=== PATIENT | male | born 1935 | race Caucasian/White ===

== ENCOUNTER 2017-02-16 09:29 | Inpatient (IN) | payer MEDICARE, OTHER ==
--- NOTE | 2017-02-16 10:11 | EDM.PDOC ---
ED HPI GENERAL MEDICAL PROBLEM - General Chief Complaint: Neuro Symptoms/Deficits Stated Complaint: RIGHT SIDED WEAKNESS Time Seen by Provider: 02/16/17 10:06 Source of Information: Reports: Patient, Family, Other ( records from er visit from yesterday. ) - History of Present Illness Onset: Other ( started last nite and was definitely worse today. ) Duration: Hour(s):, Getting Worse, Recurring Location: Reports: Head Associated Symptoms: Reports: Other (pt was having difficulty coordinating his rt arm. He had some problem walking. He was not able to feed himself this am. ) - Related Data Allergies Allergy/AdvReac Type Severity Reaction Status Date / Time No Known Allergies Allergy Verified 02/16/17 09:44 Home Meds: Home Meds Aspirin [Adult Low Dose Aspirin EC] 81 mg PO DAILY 07/23/13 [History] Gluc/Preston-Msm#1/C/Cory/[place]/Bor [Eq Xodurqrsrkw-Prgbjak-BRU Tab] 1 each PO ASDIRECTED 07/23/13 [History] Verapamil HCl [Verapamil ER] 1 tab PO Q12HR 07/23/13 [History] Calcium Carbonate [Calcium] 1 tab PO DAILY 02/16/17 [History] Past Medical History HEENT History: Reports: Hard of Hearing, Impaired Vision Cardiovascular History: Reports: Hypertension Musculoskeletal History: Reports: Back Pain, Chronic Neurological History: Reports: CVA Oncologic (Cancer) History: Reports: Prostate, Other (See Below) Other Oncologic History: skin cancer Dermatologic History: Reports: Other (See Below) Other Dermatologic History: skin cancer - Past Surgical History Male Surgical History: Reports: Prostatectomy Social & Family History - Tobacco Use Smoking Status *Q: Never Smoker Second Hand Smoke Exposure: No - Alcohol Use Days Per Week of Alcohol Use: 1 Number of Drinks Per Day: 1 Total Drinks Per Week: 1 - Recreational Drug Use Recreational Drug Use: No ED ROS GENERAL - Review of Systems Review Of Systems: See Below Constitutional: Reports: No Symptoms HEENT: Reports: No Symptoms Respiratory: Reports: No Symptoms Cardiovascular: Reports: No Symptoms, Other (pt did have bradicardia yesterday. ) GI/Abdominal: Reports: No Symptoms : Reports: No Symptoms Musculoskeletal: Reports: No Symptoms Skin: Reports: No Symptoms ED EXAM, NEURO - Physical Exam Exam: See Below Text/Narrative:: pt arrived because he was having difficulty coordinating his rt arm and he was not able to feed himself this am. He was having difficulty with ambulation because of weakness in the rt leg. he had no speech difficulty or facial deviation. Exam Limited By: No Limitations General Appearance: Alert, No Apparent Distress, Other (pupils are equal and reactive. ) Ears: Normal TMs Nose: Normal Inspection Throat/Mouth: Normal Inspection Head Exam: Atraumatic Neck: Other (no bruits noted. ) Respiratory/Chest: No Respiratory Distress Cardiovascular: Regular Rate, Rhythm, Other ( rate is 55. ) GI/Abdominal: Soft, Non-Tender (Male) Exam: Deferred Rectal (Males) Exam: Deferred Neurological: Alert, Oriented x 3 Back Exam: Normal Inspection Extremities: Normal Inspection Psychiatric: Normal Affect Course - Vital Signs Last Recorded V/S: Last Vital Signs Temp 36.8 C 02/19/17 02:55 Pulse 77 02/19/17 02:55 Resp 14 02/19/17 02:55 BP 145/89 H 02/19/17 02:55 Pulse Ox 98 02/19/17 02:55 - Orders/Labs/Meds Orders: Medication Orders Apixaban (Eliquis) 5 mg PO BID [facility] Last Admin: 02/18/17 20:42 Dose: 5 mg Admin: 02/18/17 09:56 Dose: 5 mg Admin: 02/17/17 21:22 Dose: 5 mg Admin: 02/17/17 08:13 Dose: 5 mg Admin: 02/16/17 20:36 Dose: 5 mg Admin: 02/16/17 13:45 Dose: 5 mg Aspirin (Halfprin) 81 mg PO DAILY [facility] Last Admin: 02/18/17 09:56 Dose: 81 mg Admin: 02/17/17 08:13 Dose: 81 mg Calcium Carbonate (Caltrate 600+D 1500 Mg-400 Units) 1 tab PO DAILY [facility] Last Admin: 02/18/17 09:56 Dose: 1 tab Admin: 02/17/17 08:13 Dose: 1 tab Lisinopril (Prinivil) 10 mg PO DAILY [facility] Last Admin: 02/18/17 09:56 Dose: 10 mg Admin: 02/17/17 08:13 Dose: 10 mg Sodium Chloride (Saline Flush) 10 ml FLUSH ASDIRECTED PRN PRN Reason: Keep Vein Open Labs: Laboratory Tests 02/16/17 02/16/17 02/16/17 Range/Units 09:35 09:35 09:35 WBC 6.3 (4.5-11.0) K/uL RBC 4.27 L (4.30-5.90) M/uL Hgb 13.3 (12.0-15.0) g/dL Hct 40.3 (40.0-54.0) % MCV 94 (80-98) fL MCH 31 (27-31) pg MCHC 33 (32-36) % Plt Count 196 (150-400) K/uL Neut % (Auto) 54 (36-66) % Lymph % (Auto) 33 (24-44) % [place] % (Auto) 10 H (2-6) % Eos % (Auto) 2 (2-4) % Baso % (Auto) 1 (0-1) % Sodium 143 (140-148) mmol/L Potassium 4.1 (3.6-5.2) mmol/L Chloride 107 (100-108) mmol/L Carbon Dioxide 30 (21-32) mmol/L Anion Gap 5.6 (5.0-14.0) mmol/L BUN 12 (7-18) mg/dL Creatinine 1.2 (0.8-1.3) mg/dL Est Cr Clr Drug Dosing 45.90 mL/min Estimated GFR (MDRD) 58 L (>60) Glucose 93 (74-106) mg/dL Calcium 9.2 (8.5-10.1) mg/dL Total Bilirubin 0.7 (0.2-1.0) mg/dL AST 22 (15-37) U/L ALT 24 (12-78) U/L Alkaline Phosphatase 68 (46-116) U/L Troponin I 0.026 (0.000-0.056) ng/mL Total Protein 5.7 L (6.4-8.2) g/dL Albumin 2.3 L (3.4-5.0) g/dL Globulin 3.4 (2.3-3.5) g/dL Albumin/Globulin Ratio 0.7 L (1.2-2.2) Urine Color Urine Appearance Urine pH (4.5-8.0) Ur Specific [place] (1.008-1.030) Urine Protein (NEGATIVE) mg/dL Urine Glucose (UA) (NEGATIVE) mg/dL Urine Ketones (NEGATIVE) mg/dL Urine Occult Blood (NEGATIVE) Urine Nitrite (NEGAITVE) Urine Bilirubin (NEGATIVE) Urine Urobilinogen (NORMAL) mg/dL Ur Leukocyte Esterase (NEGATIVE) Urine RBC (0-5) Urine WBC (0-5) Ur Epithelial Cells Amorphous Sediment Urine Bacteria Urine Mucus 02/16/17 Range/Units 11:05 WBC (4.5-11.0) K/uL RBC (4.30-5.90) M/uL Hgb (12.0-15.0) g/dL Hct (40.0-54.0) % MCV (80-98) fL MCH (27-31) pg MCHC (32-36) % Plt Count (150-400) K/uL Neut % (Auto) (36-66) % Lymph % (Auto) (24-44) % [place] % (Auto) (2-6) % Eos % (Auto) (2-4) % Baso % (Auto) (0-1) % Sodium (140-148) mmol/L Potassium (3.6-5.2) mmol/L Chloride (100-108) mmol/L Carbon Dioxide (21-32) mmol/L Anion Gap (5.0-14.0) mmol/L BUN (7-18) mg/dL Creatinine (0.8-1.3) mg/dL Est Cr Clr Drug Dosing mL/min Estimated GFR (MDRD) (>60) Glucose (74-106) mg/dL Calcium (8.5-10.1) mg/dL Total Bilirubin (0.2-1.0) mg/dL AST (15-37) U/L ALT (12-78) U/L Alkaline Phosphatase (46-116) U/L Troponin I (0.000-0.056) ng/mL Total Protein (6.4-8.2) g/dL Albumin (3.4-5.0) g/dL Globulin (2.3-3.5) g/dL Albumin/Globulin Ratio (1.2-2.2) Urine Color Yellow Urine Appearance Clear Urine pH 8.0 (4.5-8.0) Ur Specific [place] 1.015 (1.008-1.030) Urine Protein Negative (NEGATIVE) mg/dL Urine Glucose (UA) Normal (NEGATIVE) mg/dL Urine Ketones Negative (NEGATIVE) mg/dL Urine Occult Blood Negative (NEGATIVE) Urine Nitrite Negative (NEGAITVE) Urine Bilirubin Negative (NEGATIVE) Urine Urobilinogen Normal (NORMAL) mg/dL Ur Leukocyte Esterase Negative (NEGATIVE) Urine RBC Not seen (0-5) Urine WBC Not seen (0-5) Ur Epithelial Cells Not seen Amorphous Sediment Few Urine Bacteria Not seen Urine Mucus Not seen Meds: Medications Generic Name Dose Route Start Last Admin Trade Name Ayla PRN Reason Stop Dose Admin Apixaban 5 mg 02/16/17 13:00 02/18/17 20:42 Eliquis PO 5 mg BID KATHRYN Administration Aspirin 81 mg 02/17/17 09:00 02/18/17 09:56 Halfprin PO 81 mg DAILY KATHRYN Administration Calcium Carbonate 1 tab 02/17/17 09:00 02/18/17 09:56 Caltrate 600+D 1500 Mg-400 Units PO 1 tab DAILY KATHRYN Administration Lisinopril 10 mg 02/17/17 09:00 02/18/17 09:56 Prinivil PO 10 mg DAILY KATHRYN Administration Sodium Chloride 10 ml 02/16/17 12:41 Saline Flush FLUSH ASDIRECTED PRN Keep Vein Open - Re-Assessments/Exams Free Text/Narrative Re-Assessment/Exam: 02/16/17 10:58 pt had an MRI of the head which did not rveal a acute hemmorage or area of a stroke. He has alot of chronic ischemia and white matter changes. 02/16/17 11:01 Departure - Departure Time of Disposition: 02:55 Disposition: Admitted As Inpatient 67 Condition: Fair Clinical Impression: Ischemic cerebrovascular accident (CVA) due to small artery occlusion, Bradycardia - Discharge Information
--- NOTE | 2017-02-16 10:56 | MR ---
Brain wo Cont HISTORY: Stroke like symptoms right-sided symptomatology. COMPARISON: CT brain 03/29/2016. FINDINGS: On the diffusion images no findings to suggest acute ischemia. There is fairly extensive di ffuse atrophy and extensive chronic white matter change in the periventricular and centrum semiovale regions. No acute hemorrhage. The posterior fossa and brainstem appear normal. The sinuses and mastoi d air cells are clear. impression: 1. No acute areas of ischemia or hemorrhage. Extensive atrophy and chronic white matter change.
--- NOTE | 2017-02-16 11:59 | US ---
Carotid Comp HISTORY: Right-sided abnormality possible stroke. COMPARISON: None FINDINGS: Within the right and left internal carotid arteries there is no significant plaque. No sten osis. The peak systolic and diastolic flow velocities in the right internal carotid artery measure 50 cm /s 14 cm/s. In the left internal carotid artery this measures 46 cm/s and 17 cm/s. There is antegrade flow in both vertebral arteries. Impression: 1. Only minimal plaque in both carotid arteries no hemodynamically significant stenosis.
[2017-02-16] MEDS ORDERED: Sodium Chloride 0.9% 10 ML Syringe FLUSH PRN (12:41)
--- NOTE | 2017-02-16 13:03 | PCM.HP ---
H&P History of Present Illness - General Date of Service: 02/16/17 Admit Problem/Dx: Admission Diagnosis/Problem Admission Diagnosis/Problem CVA, Cerebrovascular accident Source of Information: Patient, EMS Notes Reviewed, Family History Limitations: Reports: No Limitations - History of Present Illness Initial Comments - Free Text/Narative: Last evening about 8 PM he had weakness on the right side of his body and speech slurred. He as taken to the ER in [place] and told he had Dehydration and CT of the head was normal. He went home and could walk normal. This morning when he woke up he had weakness on the right side again and brought to the hospital. He has a history of a CVA in the past. His heart rate was in the 30's last evening. The ER Doctor call the neurologist and was told to observe in the hospital. Transfer was not recommended. Onset of Symptoms: Reports: Sudden Symptom Onset Date: 02/15/17 Symptom Onset Time: 08:00 Duration of Symptoms: Reports: Hour(s): Location: Reports: Upper Extremity, Right, Lower Extremity, Left Severity: Moderate Improves with: Reports: None Worsens with: Reports: Immobilization Associated Symptoms: Reports: Weakness - Related Data Allergies/Adverse Reactions: Allergies Allergy/AdvReac Type Severity Reaction Status Date / Time No Known Allergies Allergy Verified 02/16/17 09:44 Home Medications: Home Meds Aspirin [Adult Low Dose Aspirin EC] 81 mg PO DAILY 07/23/13 [History] Gluc/Preston-Msm#1/C/Cory/[place]/Bor [Eq Qkxenilhizq-Mqzkrfk-EPG Tab] 1 each PO ASDIRECTED 07/23/13 [History] Verapamil HCl [Verapamil ER] 1 tab PO Q12HR 07/23/13 [History] Calcium Carbonate [Calcium] 1 tab PO DAILY 02/16/17 [History] Past Medical History HEENT History: Reports: Hard of Hearing, Impaired Vision Cardiovascular History: Reports: Hypertension Musculoskeletal History: Reports: Back Pain, Chronic Neurological History: Reports: CVA Oncologic (Cancer) History: Reports: Prostate, Other (See Below) Other Oncologic History: skin cancer Dermatologic History: Reports: Other (See Below) Other Dermatologic History: skin cancer - Past Surgical History Male Surgical History: Reports: Prostatectomy Social & Family History - Tobacco Use Smoking Status *Q: Never Smoker Second Hand Smoke Exposure: No - Alcohol Use Days Per Week of Alcohol Use: 1 Number of Drinks Per Day: 1 Total Drinks Per Week: 1 - Recreational Drug Use Recreational Drug Use: No H&P Review of Systems - Review of Systems: Review Of Systems: See Below General: Reports: Weakness HEENT: Reports: Visual Changes Pulmonary: Reports: No Symptoms Cardiovascular: Reports: No Symptoms Gastrointestinal: Reports: No Symptoms Genitourinary: Reports: No Symptoms Musculoskeletal: Reports: No Symptoms Skin: Reports: No Symptoms Psychiatric: Reports: No Symptoms Neurological: Reports: Difficulty Walking, Weakness, Other Exam - Exam Exam: See Below - Vital Signs Vital Signs: Last Vital Signs Temp 201.4 F H 02/16/17 09:38 Pulse 50 L 02/16/17 10:48 Resp 17 02/16/17 10:48 BP 147/85 H 02/16/17 10:48 Pulse Ox 95 02/16/17 10:48 Weight: 165 lb - Exam General: Alert, Oriented, 4 HEENT: PERRLA, Hearing Intact, Mucosa Moist & [place], Nares Patent, Normal Nasal Septum, Posterior Pharynx Clear, Conjunctiva Clear, EOMI, EACs Clear, TMs Clear Neck: Supple, Trachea Midline, 2 Lungs: Clear to Auscultation, Normal Respiratory Effort Cardiovascular: Regular Rate, Regular Rhythm GI/Abdominal Exam: Normal Bowel Sounds, Soft, Non-Tender, No Organomegaly, No Distention, No Abnormal Bruit, No Mass, Pelvis Stable Back Exam: Normal Inspection, Full Range of Motion, NT Extremities: Normal Inspection, Normal Range of Motion, Non-Tender, No Pedal Edema, Normal Capillary Refill Peripheral Pulses: 1+: Carotid (L), Carotid (R), Radial (L), Radial (R) Skin: Warm, Dry, Intact Neurological: Babinski, Hyperreflexia, Other (He has past pointing of his right hand from finger to nose. Mininual gag reflex. Hyperreflexic on the right and a pos. babinsky on the right. Muscle strength is normal and equal bilateral.) Neuro Extensive - Mental Status: Alert, Oriented x3, Normal Mood/Affect, Normal Cognition DTR: 1+: Bicep (L), Patella (L), 2+: Bicep (R), Patella (R) Psychiatric: Alert, Normal Affect, Normal Mood - Patient Data Lab Results Last 24 hrs: Laboratory Results - last 24 hr 02/16/17 02/16/17 02/16/17 Range/Units 09:35 09:35 09:35 WBC 6.3 (4.5-11.0) K/uL RBC 4.27 L (4.30-5.90) M/uL Hgb 13.3 (12.0-15.0) g/dL Hct 40.3 (40.0-54.0) % MCV 94 (80-98) fL MCH 31 (27-31) pg MCHC 33 (32-36) % Plt Count 196 (150-400) K/uL Neut % (Auto) 54 (36-66) % Lymph % (Auto) 33 (24-44) % [place] % (Auto) 10 H (2-6) % Eos % (Auto) 2 (2-4) % Baso % (Auto) 1 (0-1) % Sodium 143 (140-148) mmol/L Potassium 4.1 (3.6-5.2) mmol/L Chloride 107 (100-108) mmol/L Carbon Dioxide 30 (21-32) mmol/L Anion Gap 5.6 (5.0-14.0) mmol/L BUN 12 (7-18) mg/dL Creatinine 1.2 (0.8-1.3) mg/dL Est Cr Clr Drug Dosing 45.90 mL/min Estimated GFR (MDRD) 58 L (>60) Glucose 93 (74-106) mg/dL Calcium 9.2 (8.5-10.1) mg/dL Total Bilirubin 0.7 (0.2-1.0) mg/dL AST 22 (15-37) U/L ALT 24 (12-78) U/L Alkaline Phosphatase 68 (46-116) U/L Troponin I 0.026 (0.000-0.056) ng/mL Total Protein 5.7 L (6.4-8.2) g/dL Albumin 2.3 L (3.4-5.0) g/dL Globulin 3.4 (2.3-3.5) g/dL Albumin/Globulin Ratio 0.7 L (1.2-2.2) Urine Color Urine Appearance Urine pH (4.5-8.0) Ur Specific [place] (1.008-1.030) Urine Protein (NEGATIVE) mg/dL Urine Glucose (UA) (NEGATIVE) mg/dL Urine Ketones (NEGATIVE) mg/dL Urine Occult Blood (NEGATIVE) Urine Nitrite (NEGAITVE) Urine Bilirubin (NEGATIVE) Urine Urobilinogen (NORMAL) mg/dL Ur Leukocyte Esterase (NEGATIVE) Urine RBC (0-5) Urine WBC (0-5) Ur Epithelial Cells Amorphous Sediment Urine Bacteria Urine Mucus 02/16/17 Range/Units 11:05 WBC (4.5-11.0) K/uL RBC (4.30-5.90) M/uL Hgb (12.0-15.0) g/dL Hct (40.0-54.0) % MCV (80-98) fL MCH (27-31) pg MCHC (32-36) % Plt Count (150-400) K/uL Neut % (Auto) (36-66) % Lymph % (Auto) (24-44) % [place] % (Auto) (2-6) % Eos % (Auto) (2-4) % Baso % (Auto) (0-1) % Sodium (140-148) mmol/L Potassium (3.6-5.2) mmol/L Chloride (100-108) mmol/L Carbon Dioxide (21-32) mmol/L Anion Gap (5.0-14.0) mmol/L BUN (7-18) mg/dL Creatinine (0.8-1.3) mg/dL Est Cr Clr Drug Dosing mL/min Estimated GFR (MDRD) (>60) Glucose (74-106) mg/dL Calcium (8.5-10.1) mg/dL Total Bilirubin (0.2-1.0) mg/dL AST (15-37) U/L ALT (12-78) U/L Alkaline Phosphatase (46-116) U/L Troponin I (0.000-0.056) ng/mL Total Protein (6.4-8.2) g/dL Albumin (3.4-5.0) g/dL Globulin (2.3-3.5) g/dL Albumin/Globulin Ratio (1.2-2.2) Urine Color Yellow Urine Appearance Clear Urine pH 8.0 (4.5-8.0) Ur Specific [place] 1.015 (1.008-1.030) Urine Protein Negative (NEGATIVE) mg/dL Urine Glucose (UA) Normal (NEGATIVE) mg/dL Urine Ketones Negative (NEGATIVE) mg/dL Urine Occult Blood Negative (NEGATIVE) Urine Nitrite Negative (NEGAITVE) Urine Bilirubin Negative (NEGATIVE) Urine Urobilinogen Normal (NORMAL) mg/dL Ur Leukocyte Esterase Negative (NEGATIVE) Urine RBC Not seen (0-5) Urine WBC Not seen (0-5) Ur Epithelial Cells Not seen Amorphous Sediment Few Urine Bacteria Not seen Urine Mucus Not seen Result Diagrams: 02/17/17 05:11 02/17/17 05:11 *Q Meaningful Use (ADM) - VTE *Q VTE Criteria *Q: - Stroke *Q Stroke Criteria *Q: - AMI *Q AMI Criteria *Q: Problem List Initiated/Reviewed/Updated: Yes Orders Last 24hrs: Active Orders 24 hr Category Date Time Status Patient Status [ADT] Routine ADT 02/16/17 12:41 Ordered Ambulate [RC] QID Care 02/16/17 12:41 Ordered Cardiac Monitoring [RC] .As Directed Care 02/16/17 12:43 Ordered EKG Documentation Completion [RC] ASDIRECTED Care 02/16/17 10:23 Active Height and Weight [RC] DAILY Care 02/16/17 12:41 Ordered Intake and Output [RC] QSHIFT Care 02/16/17 12:43 Ordered May Shower [RC] ASDIRECTED Care 02/16/17 12:41 Ordered Oxygen Therapy [RC] PRN Care 02/16/17 12:41 Ordered Up to Chair [RC] QID Care 02/16/17 12:41 Ordered VTE/DVT Education [RC] Per Unit Routine Care 02/16/17 12:41 Ordered Vital Signs [RC] Q4H Care 02/16/17 12:41 Ordered 2 Gram Sodium Diet [DIET] Diet 02/16/17 Dinner Ordered Heart Healthy Diet [DIET] Diet 02/16/17 Dinner Ordered CBC WITH AUTO DIFF [HEME] AM Lab 02/17/17 05:11 Ordered COMPREHENSIVE METABOLIC PN,CMP [CHEM] AM Lab 02/17/17 05:11 Ordered Apixaban [Eliquis] Med 02/16/17 12:54 Once 5 mg PO BID ONE Aspirin [Halfprin] Med 02/17/17 09:00 Ordered 81 mg PO DAILY Calcium Carbonate [Calcium] Med 02/17/17 09:00 Ordered 1 tab PO DAILY Lisinopril [Prinivil] Med 02/17/17 09:00 Ordered 10 mg PO DAILY Sodium Chloride 0.9% [Saline Flush] Med 02/16/17 12:41 Ordered 10 ml FLUSH ASDIRECTED PRN Saline Lock Insert [OM.PC] Routine Oth 02/16/17 12:41 Ordered Resuscitation Status Routine Resus Stat 02/16/17 12:41 Ordered EKG 12 Lead [EK] Routine Ther 02/16/17 10:23 Ordered Medication Orders Apixaban (Eliquis) 5 mg PO BID ONE Stop: 02/16/17 12:55 Aspirin (Halfprin) 81 mg PO DAILY KATHRYN Lisinopril (Prinivil) 10 mg PO DAILY KATHRYN Non-Formulary Medication (Calcium Carbonate [Calcium]) 1 tab PO DAILY KATHRYN Sodium Chloride (Saline Flush) 10 ml FLUSH ASDIRECTED PRN PRN Reason: Keep Vein Open Assessment/Plan Comment:: Assessment/Plan: #1CVA: Will start on Eliquis [address] of the head and MRI is negative. Carotid artery study is neg. #2. HTN: Will change the Verapamil to Lisinopril to control the blood pressure. #3. Bradycardia. Med. change as listed above.
[2017-02-16] MEDS: Apixaban 5 MG Tab PO SCH ×2 (13:45→20:36)
[2017-02-17] MEDS: Aspirin 81 MG Tab.EC PO SCH (08:13)
[2017-02-17] MEDS: Calcium Carbonate/Vitamin D3 1500 MG-400 Units Tab PO SCH (08:13)
[2017-02-17] MEDS: Lisinopril 10 MG Tab PO SCH (08:13)
[2017-02-17] MEDS: Apixaban 5 MG Tab PO SCH ×2 (08:13→21:22)
--- NOTE | 2017-02-17 18:46 | PCM.PN ---
- General Info Date of Service: 02/17/17 Subjective Update: He has progressed in his CVA and is unable to walk without assistance. Functional Status: Reports: Pain Controlled - Review of Systems General: Reports: No Symptoms HEENT: Reports: No Symptoms Pulmonary: Reports: No Symptoms Cardiovascular: Reports: No Symptoms Gastrointestinal: Reports: No Symptoms Genitourinary: Reports: No Symptoms Musculoskeletal: Reports: No Symptoms Skin: Reports: No Symptoms Neurological: Reports: Other (unable to move the right side and walks with help only.) - Patient Data Vitals - Most Recent: Last Vital Signs Temp 97.4 F 02/17/17 18:28 Pulse 73 02/17/17 18:28 Resp 18 02/17/17 18:28 BP 155/93 H 02/17/17 18:28 Pulse Ox 98 02/17/17 18:28 Weight - Most Recent: 165 lb I&O - Last 24 Hours: Intake & Output 02/17/17 02/17/17 02/17/17 06:59 14:59 22:59 Intake Total 200 480 800 Output Total 800 600 200 Balance -600 -120 600 Lab Results Last 24 Hours: Laboratory Results - last 24 hr 02/17/17 02/17/17 Range/Units 05:11 05:11 WBC 6.5 (4.5-11.0) K/uL RBC 4.01 L (4.30-5.90) M/uL Hgb 12.8 (12.0-15.0) g/dL Hct 37.9 L (40.0-54.0) % MCV 95 (80-98) fL MCH 32 H (27-31) pg MCHC 34 (32-36) % Plt Count 191 (150-400) K/uL Neut % (Auto) 56 (36-66) % Lymph % (Auto) 31 (24-44) % [place] % (Auto) 10 H (2-6) % Eos % (Auto) 3 (2-4) % Baso % (Auto) 0 (0-1) % Sodium 143 (140-148) mmol/L Potassium 3.9 (3.6-5.2) mmol/L Chloride 108 (100-108) mmol/L Carbon Dioxide 28 (21-32) mmol/L Anion Gap 6.9 (5.0-14.0) mmol/L BUN 10 (7-18) mg/dL Creatinine 1.1 (0.8-1.3) mg/dL Est Cr Clr Drug Dosing 50.08 mL/min Estimated GFR (MDRD) > 60 (>60) Glucose 90 (74-106) mg/dL Calcium 9.1 (8.5-10.1) mg/dL Total Bilirubin 0.8 (0.2-1.0) mg/dL AST 21 (15-37) U/L ALT 22 (12-78) U/L Alkaline Phosphatase 59 (46-116) U/L Total Protein 5.4 L (6.4-8.2) g/dL Albumin 3.3 L (3.4-5.0) g/dL Globulin 2.1 L (2.3-3.5) g/dL Albumin/Globulin Ratio 1.6 (1.2-2.2) Med Orders - Current: Current Medications Apixaban (Eliquis) 5 mg PO BID [facility] Last Admin: 02/17/17 08:13 Dose: 5 mg Aspirin (Halfprin) 81 mg PO DAILY [facility] Last Admin: 02/17/17 08:13 Dose: 81 mg Calcium Carbonate (Caltrate 600+D 1500 Mg-400 Units) 1 tab PO DAILY [facility] Last Admin: 02/17/17 08:13 Dose: 1 tab Lisinopril (Prinivil) 10 mg PO DAILY [facility] Last Admin: 02/17/17 08:13 Dose: 10 mg Sodium Chloride (Saline Flush) 10 ml FLUSH ASDIRECTED PRN PRN Reason: Keep Vein Open - Exam General: Alert, Oriented HEENT: Pupils Equal, Pupils Reactive, EOMI, Mucous Membr. Moist/[place] Neck: Supple Lungs: Clear to Auscultation, Normal Respiratory Effort Cardiovascular: Regular Rate, Regular Rhythm GI/Abdominal Exam: Normal Bowel Sounds, Soft, Non-Tender, No Organomegaly, No Distention, No Abnormal Bruit, No Mass, Pelvis Stable Extremities: Normal Inspection, Normal Range of Motion, Non-Tender, No Pedal Edema, Normal Capillary Refill Skin: Warm, Dry, Intact Neurological: Other (babinsky on the right and weakness on the right and speech slurred.) Psy/Mental Status: Alert, Normal Affect - Problem List Review Problem List Initiated/Reviewed/Updated: Yes - My Orders Last 24 Hours: My Active Orders 02/17/17 09:00 Aspirin [Halfprin] 81 mg PO DAILY Calcium Carbonate/Vitamin D3 [Caltrate 600+D 1500 MG-400 Units] 1 tab PO DAILY Lisinopril [Prinivil] 10 mg PO DAILY - Plan Plan:: Assessment/Plan: #1CVA: Plan to transfer to [place] for rehabilitation Sunday. #2. HTN: Will continue with the sharlene as listed. #3. Bradycardia: Resolved per tele documentation. Labs reviewed.
--- NOTE | 2017-02-18 05:08 | PCM.PN ---
- General Info Date of Service: 02/18/17 Subjective Update: He continues to have weakness with poor movement on the right side with speech impairment. Functional Status: Reports: Pain Controlled - Review of Systems General: Reports: Weakness HEENT: Reports: No Symptoms Pulmonary: Reports: No Symptoms Cardiovascular: Reports: No Symptoms Gastrointestinal: Reports: No Symptoms Genitourinary: Reports: No Symptoms Musculoskeletal: Reports: No Symptoms Neurological: Reports: Trouble Speaking, Difficulty Walking Psychiatric: Reports: No Symptoms - Patient Data Vitals - Most Recent: Last Vital Signs Temp 97.2 F 02/18/17 02:43 Pulse 88 02/18/17 02:43 Resp 16 02/18/17 02:43 BP 132/83 02/18/17 02:43 Pulse Ox 100 02/18/17 02:43 Weight - Most Recent: 165 lb I&O - Last 24 Hours: Intake & Output 02/17/17 02/17/17 02/18/17 14:59 22:59 06:59 Intake Total 480 1600 Output Total 600 350 550 Balance -120 1250 -550 Lab Results Last 24 Hours: Laboratory Results - last 24 hr 02/17/17 02/17/17 Range/Units 05:11 05:11 WBC 6.5 (4.5-11.0) K/uL RBC 4.01 L (4.30-5.90) M/uL Hgb 12.8 (12.0-15.0) g/dL Hct 37.9 L (40.0-54.0) % MCV 95 (80-98) fL MCH 32 H (27-31) pg MCHC 34 (32-36) % Plt Count 191 (150-400) K/uL Neut % (Auto) 56 (36-66) % Lymph % (Auto) 31 (24-44) % Dyer % (Auto) 10 H (2-6) % Eos % (Auto) 3 (2-4) % Baso % (Auto) 0 (0-1) % Sodium 143 (140-148) mmol/L Potassium 3.9 (3.6-5.2) mmol/L Chloride 108 (100-108) mmol/L Carbon Dioxide 28 (21-32) mmol/L Anion Gap 6.9 (5.0-14.0) mmol/L BUN 10 (7-18) mg/dL Creatinine 1.1 (0.8-1.3) mg/dL Est Cr Clr Drug Dosing 50.08 mL/min Estimated GFR (MDRD) > 60 (>60) Glucose 90 (74-106) mg/dL Calcium 9.1 (8.5-10.1) mg/dL Total Bilirubin 0.8 (0.2-1.0) mg/dL AST 21 (15-37) U/L ALT 22 (12-78) U/L Alkaline Phosphatase 59 (46-116) U/L Total Protein 5.4 L (6.4-8.2) g/dL Albumin 3.3 L (3.4-5.0) g/dL Globulin 2.1 L (2.3-3.5) g/dL Albumin/Globulin Ratio 1.6 (1.2-2.2) Med Orders - Current: Current Medications Apixaban (Eliquis) 5 mg PO BID [facility] Last Admin: 02/17/17 21:22 Dose: 5 mg Aspirin (Halfprin) 81 mg PO DAILY [facility] Last Admin: 02/17/17 08:13 Dose: 81 mg Calcium Carbonate (Caltrate 600+D 1500 Mg-400 Units) 1 tab PO DAILY [facility] Last Admin: 02/17/17 08:13 Dose: 1 tab Lisinopril (Prinivil) 10 mg PO DAILY [facility] Last Admin: 02/17/17 08:13 Dose: 10 mg Sodium Chloride (Saline Flush) 10 ml FLUSH ASDIRECTED PRN PRN Reason: Keep Vein Open - Exam General: Oriented, Cooperative HEENT: Pupils Equal, Pupils Reactive, EOMI, Mucous Membr. Moist/[place] Neck: Supple Lungs: Clear to Auscultation Cardiovascular: Regular Rate, Regular Rhythm GI/Abdominal Exam: Normal Bowel Sounds, Soft, Non-Tender, No Organomegaly, No Distention, No Abnormal Bruit, No Mass, Pelvis Stable Extremities: Other (right sided weakness with poor movement) Peripheral Pulses: 1+: Radial (L), Radial (R) Skin: Warm, Dry, Intact Neurological: Other (left CVA with right sided weakness.) Psy/Mental Status: Normal Affect - Problem List Review Problem List Initiated/Reviewed/Updated: Yes - My Orders Last 24 Hours: My Active Orders 02/17/17 09:00 Aspirin [Halfprin] 81 mg PO DAILY Calcium Carbonate/Vitamin D3 [Caltrate 600+D 1500 MG-400 Units] 1 tab PO DAILY Lisinopril [Prinivil] 10 mg PO DAILY 02/17/17 18:44 EKG 12 Lead [EK] Routine - Plan Plan:: Assessment/Plan: #1. 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 #2. HTN: Good control. Will continue with the sharlene as listed. #3. Bradycardia: Resolved per tele documentation. Further care by Dr. Trace Jones in my absence. I have spoken with him.
[2017-02-18] MEDS: Apixaban 5 MG Tab PO SCH ×2 (09:56→20:42)
[2017-02-18] MEDS: Lisinopril 10 MG Tab PO SCH (09:56)
[2017-02-18] MEDS: Calcium Carbonate/Vitamin D3 1500 MG-400 Units Tab PO SCH (09:56)
[2017-02-18] MEDS: Aspirin 81 MG Tab.EC PO SCH (09:56)
[2017-02-19] MEDS: Calcium Carbonate/Vitamin D3 1500 MG-400 Units Tab PO SCH (08:32)
[2017-02-19] MEDS: Aspirin 81 MG Tab.EC PO SCH (08:32)
[2017-02-19] MEDS: Apixaban 5 MG Tab PO SCH (08:32)
[2017-02-19] MEDS: Lisinopril 10 MG Tab PO SCH (08:32)
[2017-02-19] MEDS ORDERED: Gadoteridol 279.3 MG/ML 15 ML SDV IV SCH (10:00)
--- NOTE | 2017-02-19 10:41 | MR ---
Brain w wo Cont HISTORY: Increasing right upper extremity weakness. COMPARISON: 2 days prior TECHNIQUE: The brain was imaged in the axial, sagittal, and coronal planes utilizing T1 pre and postc ontrast, gradient echo, T2, FLAIR, and diffusion-weighted techniques. FINDINGS: There has been interval development of altered diffusion along the posterior limb of the le ft internal capsule. The finding is consistent with small infarct which measures 1.5 x 1.0 cm.. There is no evidence of hemorrhage or significant mass effect. There is advanced central and cortical cerebral atrophy. There is fairly extensive increased signal t hroughout the periventricular white matter. These findings are consistent with involutional age-relat ed changes. Following contrast administration there are no abnormal areas of enhancement. Impression: 1. Acute stroke of the posterior limb left internal capsule. 3. Advanced age-related involutional changes throughout the brain.
[2017-02-19 11:35] VITALS: BP 111/97
--- NOTE | 2017-02-19 12:19 | PCM.DCSUM1 ---
Discharge Summary - Hospital Course Brief History: 81-year-old male with history of essential hypertension and previous cerebrovascular accident who presented with speech difficulties, right arm weakness and right leg weakness. He was admitted for management of a presumed cerebrovascular accident. - Discharge Data Discharge Date: 02/19/17 Discharge Disposition: DC/Tfer to Inpt Rehab Fac 62 Condition: Fair - Discharge Diagnosis/Problem(s) (1) Ischemic cerebrovascular accident (CVA) due to small artery occlusion SNOMED Code(s): 080315587 ICD Code: I63.59 - CEREB INFRC DUE TO UNSP OCCLS OR STENOSIS OF CEREBRAL ARTERY Status: Acute Current Visit: Yes (2) Bradycardia SNOMED Code(s): 50063841 ICD Code: R00.1 - BRADYCARDIA, UNSPECIFIED Status: Acute Current Visit: Yes - Patient Summary/Data Consults: Consultations 02/16/17 13:41 PT Evaluation and Treatment [CONS] Routine Please Evaluate and Treat. PT Reason for Consult: Other (Type Response) Special Instructions: one sided weakness This query below is only for informational purposes and is not editable. Admission Diagnosis/Problem: CVA, Cerebrovascular accident 02/16/17 17:15 OT Evaluation and Treatment [CONS] Routine Please Evaluate and Treat. OT Reason for Consult: Discharge Planning Pending Discharge: Yes This query below is only for informational purposes and is not editable. Admission Diagnosis/Problem: CVA, Cerebrovascular accident 02/16/17 17:16 Consult to Speech Language Pathology [GRANULIZING MACHINE OPERATOR Evaluation and Treatment] [CONS] Routine Please Evaluate and Treat GRANULIZING MACHINE OPERATOR Reason for Consult: Oral Motor Pending Discharge: Yes This query below is only for informational purposes and is not editable. Admission Diagnosis/Problem: CVA, Cerebrovascular accident Recommended Follow-up Testing/Procedures: follow-up with neurology after your acute rehabilitation stay Hospital Course: Aris presented to the emergency room with recurrent speech difficulties, right arm weakness and right leg weakness. There was concern for ischemic stroke but there is no evidence for abnormality on head CT or brain MRI. neurology was consulted from the emergency department and admission for observation and medical management was recommended. He was felt to be out of the window for any sort of intervention. He remained stable over the next couple of days with residual speech difficulties and right arm and leg weakness. Initially he had some bradycardia and his verapamil was discontinued and lisinopril was started in its place. The bradycardia resolved with this medication change. His blood pressure has remained well controlled. He has been working with physical therapy over the weekend and on the day of discharge worked with occupational therapy and speech therapy. He did have a repeat head CT the day prior to discharge which again looked normal. On the day of discharge she did have an MRI which did show a small acute stroke in the left internal capsule. He had an echocardiogram performed the final interpretation is pending. I did personally reviewed the images and he appears to have good cardiac function. I did not appreciate any significant valvular abnormalities. No obvious intracardiac thrombus was noted. At this point the plan is for him to be discharged to acute rehabilitation for physical, occupational and speech therapy. We have initiated several new medications to help manage his cerebrovascular disease. These medications include apixaban, atorvastatin and lisinopril. This likely represents more of a small vessel occlusive stroke and an embolic stroke but the primary care physician felt that the potential benefits of the medication outweigh the risks and this was initiated at the time of admission. He will be discharged to acute rehabilitation today. His vital signs have been stable. He does have obvious facial droop on the right as well as flaccid weakness of the right arm and significant right leg weakness as well. I do believe he is able to participate in acute rehabilitation activities. Prior to this event he was able to drive a bobcat, feet his wood stove twice daily and take care of all the duties at home. - Patient Instructions Diet: Heart Healthy Diet Activity: As Tolerated Showering/Bathing: May Shower Notify Provider of: Fever, Increased Pain, Nausea and/or Vomiting Other/Special Instructions: 1. You were in the hospital for management of a presumed cerebrovascular accident. This was confirmed with the second MRI obtained on the day of hospital discharge. You had a small ischemic stroke on the left side of your brain resulting in difficulty with speech, right arm weakness and right leg weakness. We have prescribed several new medications to help manage this stroke and reduce the risk of having another one. We recommend acute rehabilitation to improve strength, speech and coordination. 2. New medications -. - Apixiban (eliquis) 5 mg by mouth twice daily. - atorvastatin (Lipitor) 40 mg by mouth at bedtime. 3. Stop taking the following medication - . - Verapamil. 4. Referral to physical and occupational therapy as well as speech therapy. 5. You will be discharged from our hospital to transfer to acute rehabilitation in [place] so you can receive the therapies listed above. 6. I would recommend outpatient neurology follow-up after your rehabilitation stay - Discharge Plan Prescriptions/Med Rec: Apixaban [Eliquis] 5 mg PO BID #60 tablet atorvaSTATin [Lipitor] 40 mg PO BEDTIME #30 tab Lisinopril [Prinivil] 10 mg PO DAILY #30 tablet Home Medications: Home Meds Aspirin [Adult Low Dose Aspirin EC] 81 mg PO DAILY 07/23/13 [History] Gluc/Preston-Msm#1/C/Cory/Linden/Bor [Eq [id number] Tab] 1 each PO ASDIRECTED 07/23/13 [History] Calcium Carbonate [Calcium] 1 tab PO DAILY 02/16/17 [History] Apixaban [Eliquis] 5 mg PO BID #60 tablet 02/19/17 [Rx] Lisinopril [Prinivil] 10 mg PO DAILY #30 tablet 02/19/17 [Rx] atorvaSTATin [Lipitor] 40 mg PO BEDTIME #30 tab 02/19/17 [Rx] Patient Handouts: Ischemic Stroke Treated Without Warfarin, [id number], Atorvastatin tablets, Apixaban oral tablets Referrals: Duke Sheppard Sr, MD [Primary Care Provider] - (f/u after your acute rehab stay ) - Discharge Summary/Plan Comment DC Time >30 min.: Yes (40 - d/c to acute rehabilitation with recent CVA) - Patient Data Vitals - Most Recent: Last Vital Signs Temp 36.2 C 02/19/17 11:33 Pulse 67 02/19/17 11:33 Resp 18 02/19/17 11:33 BP 111/97 H 02/19/17 11:33 Pulse Ox 96 02/19/17 11:33 Weight - Most Recent: 74.843 kg I&O - Last 24 hours: Intake & Output 02/18/17 02/19/17 02/19/17 22:59 06:59 14:59 Intake Total 450 0 860 Output Total 400 850 Balance 50 0 10 Med Orders - Current: Current Medications Apixaban (Eliquis) 5 mg PO BID [facility] Last Admin: 02/19/17 08:32 Dose: 5 mg Aspirin (Halfprin) 81 mg PO DAILY [facility] Last Admin: 02/19/17 08:32 Dose: 81 mg Calcium Carbonate (Caltrate 600+D 1500 Mg-400 Units) 1 tab PO DAILY [facility] Last Admin: 02/19/17 08:32 Dose: 1 tab Lisinopril (Prinivil) 10 mg PO DAILY [facility] Last Admin: 02/19/17 08:32 Dose: 10 mg Sodium Chloride (Saline Flush) 10 ml FLUSH ASDIRECTED PRN PRN Reason: Keep Vein Open Discontinued Medications Gadoteridol (Prohance) 15 ml IV .A DIRECTED [facility] Stop: 02/19/17 10:30 Last Admin: 02/19/17 10:20 Dose: 15 ml - Exam Quality Assessment: Denies: Supplemental Oxygen General: Reports: Alert, Oriented, Cooperative, No Acute Distress Neck: Reports: Supple Lungs: Reports: Normal Respiratory Effort Cardiovascular: Reports: Regular Rate, Regular Rhythm Extremities: No Pedal Edema Skin: Reports: Warm Neurological: Reports: Normal Speech (mild dysarthria), Other (right facial droop. Flaccid paralysis right arm, especially more distal muscles. Minimal ability to use the right arm at this time. Moderate right leg weakness but he is able to bear weight for a short time.). Denies: Strength Equal Bilateral Psy/Mental Status: Reports: Alert, Normal Affect *Q Meaningful Use (DIS) - VTE *Q VTE Criteria *Q: - Stroke *Q Stroke Criteria *Q: - AMI *Q AMI Criteria *Q:
== END 2017-02-19 13:49 | DRG 65 ==
LOC: JP.ED 09:29 → JP.MS 12:41
PROVIDERS: ADMIT Internal Medicine; ATTEND Internal Medicine
DX: I63.59 Cerebral infarction due to unspecified occlusion or stenosis of other cerebral artery (principal); G81.91 Hemiplegia, unspecified affecting right dominant side; R47.9 Unspecified speech disturbances; R00.1 Bradycardia, unspecified; I10 Essential (primary) hypertension; Z86.73 Personal history of transient ischemic attack (TIA), and cerebral infarction without residual deficits; Z85.828 Personal history of other malignant neoplasm of skin; Z85.46 Personal history of malignant neoplasm of prostate; Z90.79 Acquired absence of other genital organ(s); H91.90 Unspecified hearing loss, unspecified ear; H54.7 Unspecified visual loss; Z79.82 Long term (current) use of aspirin
CPT/HCPCS: 36415; 70450; 70551; 70551-26; 70553; 70553-26; 80053; 81001; 84484; 85025; 93005; 93010; 93306; 93880; 93880-26; 96105-GN; 97110-GP; 97112-GP; 97162-GP; 97166-GO; 97530-GP; 99285; 99285-25; A9270-GY; A9576